=== PATIENT | male | born 1950 | race Caucasian/White ===

== ENCOUNTER 2020-03-04 15:14 | Emergency (ER) | payer OTHER, MEDICARE ==
[2020-03-04] MEDS ORDERED: Sodium Chloride 0.9% 10 ML Syringe FLUSH PRN ×2 (15:34→16:22)
[2020-03-04] MEDS ORDERED: Sodium Chloride 0.9% 2.5 ML Syringe FLUSH PRN ×2 (15:34→16:22)
[2020-03-04] MEDS ORDERED: Ketamine 500 mg/10 ML MDV ONE (16:01)
[2020-03-04] MEDS ORDERED: propofoL 100 ML IV SCH (16:16)
[2020-03-04] MEDS ORDERED: propofoL 100 ML ONE (16:18)
[2020-03-04] MEDS ORDERED: Rocuronium Bromide 50 MG/5 ML Syringe IVPUSH ONE (16:19)
[2020-03-04] MEDS ORDERED: Ketamine 500 mg/10 ML MDV IV ONE (16:19)
[2020-03-04] MEDS ORDERED: Cefepime 2 GM in Premix Bag 1 BAG IV ONE (16:27)
[2020-03-04] MEDS ORDERED: Dexamethasone 10 MG/ML SDV IVPUSH ONE (16:27)
[2020-03-04] MEDS ORDERED: Vancomycin/Water for INJ (PEG) 2 GM in Premix Bag 1 BAG IV ONE (16:28)
--- NOTE | 2020-03-04 16:34 | CR ---
Indication: Post intubation. Technique: AP portable view of the chest. Comparison: None Findings: An ET tube is identified with the tip 2 cm superior to level of jacek. NG tube is identified with the tip overlying the body of the stomach. The heart is borderline in size. Patchy infiltrates are identified throughout the left lung. Mild opacities are identified in the right lower lobe. Small bilateral pleural effusions are identified. No pneumothorax is seen. Impression: Intubation. Patchy opacities identified throughout both lungs, much greater on the left than the right. Dictated by Dorothy Maria MD @ Mar 04 2020 4:32PM Signed by Dr. Dorothy Maria @ Mar 04 2020 4:33PM
[2020-03-04 16:38] LABS: BLOOD UREA NITROGEN,BUN 29 mg/dL (7.0-18.0); CHLORIDE,CL 96 mmol/L (98-107); GLUCOSE RANDOM 120 mg/dL (74-106); POTASSIUM,K 4.5 mmol/L (3.5-5.1); SODIUM,NA 130 mmol/L (136-148)
--- NOTE | 2020-03-04 17:04 | EDM.PDOC ---
ED HPI GENERAL MEDICAL PROBLEM - General Chief Complaint: Respiratory Problem Stated Complaint: BREATHING DIFFICULTY Time Seen by Provider: 03/04/20 15:33 Source of Information: Reports: Patient History Limitations: Reports: Respiratory Distress - History of Present Illness INITIAL COMMENTS - FREE TEXT/NARRATIVE: 69/M w/PMH of HTN presenting with shortness of breath. Reportedly diagnosed with COVID-19 on 02/14/2020. Gets care through the [place] [facility] and has had multiple subsequent positive COVID tests. Worsening shortness of breath over the past few days, and much worse today so came to the ED. Here he complains of dyspnea but no chest pain or pain anywhere else. Remainder of HPI limited due to severe shortness of breath and critical condition. Past medical history: Reviewed, no additional pertinent history. Surgical history: Reviewed in system, no additional pertinent history. Social history: Reviewed in system, no additional pertinent history. Family history: Reviewed in system, no additional pertinent history. PHYSICAL EXAM Vital signs reviewed. Nursing notes reviewed. Constitutional: Awake, alert, appears distressed. Head: Normocephalic, atraumatic. Eyes: EOMI, conjunctiva normal, no discharge, no scleral icterus. Ears, Nose, Throat: External ears and nose normal, moist oral mucosa. Cardiovascular: Tachycardic, 2+ radial pulse, capillary refill less than 2 seconds. Pulmonary: very labored breathing, tachypneic, 2-3 word sentences, diminished bases. Abdomen/GI: Soft, nontender, nondistended, no guarding or rigidity, no masses. Musculoskeletal: No deformities. Integumentary: Appropriate color for ethnicity, warm, dry, no pallor or jaundice, no rash. Neurologic: Alert, answering questions appropriately, normal speech, moving all extremities well. Psychiatric: Appropriate mood and affect, normal thought process. - Related Data Allergies Allergy/AdvReac Type Severity Reaction Status Date / Time No Known Allergies Allergy Verified 03/04/20 15:54 Home Meds: Home Meds lisinopriL [Lisinopril] 20 mg PO DAILY 03/04/20 [History] ED ROS GENERAL - Review of Systems Review Of Systems: See Below ED EXAM, GENERAL - Physical Exam Exam: See Below ED RESPIRATORY PROCEDURES - Endotracheal Intubation Time of Intubation: 16:14 ET Intubation Indication: Respiratory Failure Preparation: Suction, Balloon Tested, BVM Set Up, Difficult Airway Equip Pre-Oxygenation: 100% FiO2 Anesthesia Meds: Ketamine, Rocuronium Placement: Orotracheal Cords Visualized: Yes ETT Size In mm: 7.5 Number of Attempts: 1 Confirmed By: CO2 Indicator, Bilateral Breath Sounds, Chest Xray Tube Secured By: By RT EKG INTERPRETATION EKG Interpretation Comments: 12-Lead ECG Interpretation Acquired: 3:59 PM Rhythm: Sinus tachycardia Rate: 105 bpm Palmer: Normal Intervals: Normal Ectopy: None RV Strain: No obvious RV strain pattern. ST Segments/T-Waves: T wave inversions lead III Acute Ischemic Changes: None apparent Interpretation: No STEMI Course - Vital Signs Text/Narrative:: Severe respiratory distress on arrival, severe hypoxia to 55% in triage. Placed on NRB at 15LPM, best SPO2 reading 87%. Very labored breathing with resting tachypnea. Decision to intubate discussed with patient and he is agreeable. IV access, labs sent. 12-lead ECG reviewed. Intubated via RSI. OG placed, additional IV access. Blood cultures x2 and labs. CXR shows marked bilateral infiltrates L>R, ETT in good position. Post-intubation sedation with propofol and ketamine. Sosa placed. Broad spectrum antibiotics and dexamethasone for COVID with hypoxia. Labs show hyponatremia, elevated CRP and LFTs. ICU admission. Had difficulty securing a bed as many facilities are full. Kaila molina got ED physician acceptance in [facility] ([place], [place]) pending ICU bed availability. ED physician wanted to defer remdesivir until accepting pocket stitcher could evaluate the patient. Air medical crew arrived to transport patient. After crew left, [facility] transfer center personnel called back to request the patient go their hospital in [place], [place] instead as they have two free ICU beds there and he would not need to board in the ED in [place], [place]. I feel this is reasonable as he will have more expeditious inpatient critical care. Contacted air medical crew and they are able to divert without issue. I spoke with accepting physician Dr. Sheikh in [place] to give report and she accepted the patient - advised on elevated D-dimer and she can decide about anticoagulation upon arrival. Last Recorded V/S: Last Vital Signs Temp 37.0 C 03/04/20 17:55 Pulse 121 H 03/04/20 17:55 Resp 19 03/04/20 17:55 BP 172/104 H 03/04/20 17:55 Pulse Ox 92 L 03/04/20 17:55 - Orders/Labs/Meds Orders: Active Orders 24 hr Category Date Time Status Insert Urinary Catheter [OM.PC] Q24H Care 03/04/20 16:30 Ordered APTT [REF] Stat Lab 03/04/20 15:50 Received CULTURE BLOOD [BC] Stat Lab 03/04/20 15:50 Received CULTURE BLOOD [BC] Stat Lab 03/04/20 16:42 Received Blood Culture x2 Reflex Set [OM.PC] Stat Ot 03/04/20 16:22 Ordered Desired Level of Sedation (RASS) [AST] Click to Edit [facility] 03/04/20 16:25 Ordered ED Rapid Sequence Intubation Reflex [OM.PC] PER UNIT [facility] 03/04/20 16:30 Ordered ROUTINE Pulse Oximetry Continuous Monitoring [OM.PC] Routine Ot 03/04/20 16:22 Ordered Saline Lock Insert [OM.PC] Stat [facility] 03/04/20 15:34 Ordered Saline Lock Insert [OM.PC] Stat Ot 03/04/20 16:22 Ordered Severe Sepsis Onset Time [OM.PC] Stat Ot 03/04/20 16:22 Ordered Labs: Laboratory Tests 03/04/20 03/04/20 03/04/20 Range/Units 15:50 15:50 15:50 WBC 10.38 (4.0-11.0) K/uL RBC 5.25 (4.50-5.90) M/uL Hgb 15.4 (13.0-17.0) g/dL Hct 44.8 (38.0-50.0) % MCV 85.3 (80.0-98.0) fL MCH 29.3 (27.0-32.0) pg MCHC 34.4 (31.0-37.0) g/dL RDW Std Deviation 43.6 (28.0-62.0) fl RDW Coeff of Tamera 14 (11.0-15.0) % Plt Count 298 (150-400) K/uL MPV 9.70 (7.40-12.00) fL Neut % (Auto) 85.3 H (48.0-80.0) % Lymph % (Auto) 8.7 L (16.0-40.0) % [place] % (Auto) 5.9 (0.0-15.0) % Eos % (Auto) 0.0 (0.0-7.0) % Baso % (Auto) 0.1 (0.0-1.5) % Neut # (Auto) 8.9 H (1.4-5.7) K/uL Lymph # (Auto) 0.9 (0.6-2.4) K/uL [place] # (Auto) 0.6 (0.0-0.8) K/uL Eos # (Auto) 0.0 (0.0-0.7) K/uL Baso # (Auto) 0.0 (0.0-0.1) K/uL Nucleated RBC % 0.0 /100WBC Nucleated RBCs # 0 K/uL INR 1.38 D-Dimer, Quantitative (0.0-0.50) mg/L FEU VBG pH (7.31-7.41) VBG pCO2 (35-45) mmHG VBG pO2 (30-40) mmHG VBG HCO3 (22-30) mEq/L VBG Total CO2 (41-51) mmol/L VBG Base Excess (-3.0-3.0) Lactate (0.20-2.00) mmol/L Sodium 130 L (136-148) mmol/L Potassium 4.5 (3.5-5.1) mmol/L Chloride 96 L (98-107) mmol/L Carbon Dioxide 20.0 L (21.0-32.0) mmol/L BUN 29 H (7.0-18.0) mg/dL Creatinine 1.3 (0.8-1.3) mg/dL Est Cr Clr Drug Dosing 53.81 mL/min Estimated GFR (MDRD) 54.4 ml/min Glucose 120 H (74-106) mg/dL Calcium 8.7 (8.5-10.1) mg/dL Total Bilirubin 1.0 (0.2-1.0) mg/dL AST 72 H (15-37) IU/L ALT 101 H (14-63) IU/L Alkaline Phosphatase 45 L (46-116) U/L Troponin I < 0.050 (0.000-0.056) ng/mL C-Reactive Protein (0.00-0.90) mg/dL B-Natriuretic Peptide (<100) PG/ML Total Protein 7.0 (6.4-8.2) g/dL Albumin 2.6 L (3.4-5.0) g/dL Globulin 4.4 H (2.6-4.0) g/dL Albumin/Globulin Ratio 0.6 L (0.9-1.6) Urine Color Urine Appearance Urine pH (5.0-8.0) Ur Specific [place] (1.001-1.035) Urine Protein (NEGATIVE) mg/dL Urine Glucose (UA) (NEGATIVE) mg/dL Urine Ketones (NEGATIVE) mg/dL Urine Occult Blood (NEGATIVE) Urine Nitrite (NEGATIVE) Urine Bilirubin (NEGATIVE) Urine Urobilinogen (<2.0) EU/dL Ur Leukocyte Esterase (NEGATIVE) Urine RBC (0-2/HPF) Urine WBC (0-5/HPF) Ur Epithelial Cells (NONE-FEW) Urine Bacteria (NEGATIVE) Urine Mucus (NONE-MOD) 03/04/20 03/04/20 03/04/20 Range/Units 15:50 15:50 15:50 WBC (4.0-11.0) K/uL RBC (4.50-5.90) M/uL Hgb (13.0-17.0) g/dL Hct (38.0-50.0) % MCV (80.0-98.0) fL MCH (27.0-32.0) pg MCHC (31.0-37.0) g/dL RDW Std Deviation (28.0-62.0) fl RDW Coeff of Tamera (11.0-15.0) % Plt Count (150-400) K/uL MPV (7.40-12.00) fL Neut % (Auto) (48.0-80.0) % Lymph % (Auto) (16.0-40.0) % [place] % (Auto) (0.0-15.0) % Eos % (Auto) (0.0-7.0) % Baso % (Auto) (0.0-1.5) % Neut # (Auto) (1.4-5.7) K/uL Lymph # (Auto) (0.6-2.4) K/uL [place] # (Auto) (0.0-0.8) K/uL Eos # (Auto) (0.0-0.7) K/uL Baso # (Auto) (0.0-0.1) K/uL Nucleated RBC % /100WBC Nucleated RBCs # K/uL INR D-Dimer, Quantitative 9.89 H (0.0-0.50) mg/L FEU VBG pH (7.31-7.41) VBG pCO2 (35-45) mmHG VBG pO2 (30-40) mmHG VBG HCO3 (22-30) mEq/L VBG Total CO2 (41-51) mmol/L VBG Base Excess (-3.0-3.0) Lactate (0.20-2.00) mmol/L Sodium (136-148) mmol/L Potassium (3.5-5.1) mmol/L Chloride (98-107) mmol/L Carbon Dioxide (21.0-32.0) mmol/L BUN (7.0-18.0) mg/dL Creatinine (0.8-1.3) mg/dL Est Cr Clr Drug Dosing mL/min Estimated GFR (MDRD) ml/min Glucose (74-106) mg/dL Calcium (8.5-10.1) mg/dL Total Bilirubin (0.2-1.0) mg/dL AST (15-37) IU/L ALT (14-63) IU/L Alkaline Phosphatase (46-116) U/L Troponin I (0.000-0.056) ng/mL C-Reactive Protein 19.20 H (0.00-0.90) mg/dL B-Natriuretic Peptide 11 (<100) PG/ML Total Protein (6.4-8.2) g/dL Albumin (3.4-5.0) g/dL Globulin (2.6-4.0) g/dL Albumin/Globulin Ratio (0.9-1.6) Urine Color Urine Appearance Urine pH (5.0-8.0) Ur Specific [place] (1.001-1.035) Urine Protein (NEGATIVE) mg/dL Urine Glucose (UA) (NEGATIVE) mg/dL Urine Ketones (NEGATIVE) mg/dL Urine Occult Blood (NEGATIVE) Urine Nitrite (NEGATIVE) Urine Bilirubin (NEGATIVE) Urine Urobilinogen (<2.0) EU/dL Ur Leukocyte Esterase (NEGATIVE) Urine RBC (0-2/HPF) Urine WBC (0-5/HPF) Ur Epithelial Cells (NONE-FEW) Urine Bacteria (NEGATIVE) Urine Mucus (NONE-MOD) 03/04/20 03/04/20 03/04/20 Range/Units 16:39 16:42 16:42 WBC (4.0-11.0) K/uL RBC (4.50-5.90) M/uL Hgb (13.0-17.0) g/dL Hct (38.0-50.0) % MCV (80.0-98.0) fL MCH (27.0-32.0) pg MCHC (31.0-37.0) g/dL RDW Std Deviation (28.0-62.0) fl RDW Coeff of Tamera (11.0-15.0) % Plt Count (150-400) K/uL MPV (7.40-12.00) fL Neut % (Auto) (48.0-80.0) % Lymph % (Auto) (16.0-40.0) % [place] % (Auto) (0.0-15.0) % Eos % (Auto) (0.0-7.0) % Baso % (Auto) (0.0-1.5) % Neut # (Auto) (1.4-5.7) K/uL Lymph # (Auto) (0.6-2.4) K/uL [place] # (Auto) (0.0-0.8) K/uL Eos # (Auto) (0.0-0.7) K/uL Baso # (Auto) (0.0-0.1) K/uL Nucleated RBC % /100WBC Nucleated RBCs # K/uL INR D-Dimer, Quantitative (0.0-0.50) mg/L FEU VBG pH 7.32 (7.31-7.41) VBG pCO2 43 (35-45) mmHG VBG pO2 102 H (30-40) mmHG VBG HCO3 22 (22-30) mEq/L VBG Total CO2 20 L (41-51) mmol/L VBG Base Excess -4.2 L (-3.0-3.0) Lactate 1.2 (0.20-2.00) mmol/L Sodium (136-148) mmol/L Potassium (3.5-5.1) mmol/L Chloride (98-107) mmol/L Carbon Dioxide (21.0-32.0) mmol/L BUN (7.0-18.0) mg/dL Creatinine (0.8-1.3) mg/dL Est Cr Clr Drug Dosing mL/min Estimated GFR (MDRD) ml/min Glucose (74-106) mg/dL Calcium (8.5-10.1) mg/dL Total Bilirubin (0.2-1.0) mg/dL AST (15-37) IU/L ALT (14-63) IU/L Alkaline Phosphatase (46-116) U/L Troponin I (0.000-0.056) ng/mL C-Reactive Protein (0.00-0.90) mg/dL B-Natriuretic Peptide (<100) PG/ML Total Protein (6.4-8.2) g/dL Albumin (3.4-5.0) g/dL Globulin (2.6-4.0) g/dL Albumin/Globulin Ratio (0.9-1.6) Urine Color YELLOW Urine Appearance SLT CLOUDY Urine pH 6.0 (5.0-8.0) Ur Specific [place] >= 1.030 (1.001-1.035) Urine Protein 30 H (NEGATIVE) mg/dL Urine Glucose (UA) NEGATIVE (NEGATIVE) mg/dL Urine Ketones NEGATIVE (NEGATIVE) mg/dL Urine Occult Blood SMALL H (NEGATIVE) Urine Nitrite NEGATIVE (NEGATIVE) Urine Bilirubin NEGATIVE (NEGATIVE) Urine Urobilinogen 0.2 (<2.0) EU/dL Ur Leukocyte Esterase NEGATIVE (NEGATIVE) Urine RBC 0-2 (0-2/HPF) Urine WBC 0-2 (0-5/HPF) Ur Epithelial Cells RARE (NONE-FEW) Urine Bacteria FEW (NEGATIVE) Urine Mucus LIGHT (NONE-MOD) Meds: Medications Discontinued Medications Generic Name Dose Route Start Last Admin Trade Name Freq PRN Reason Stop Dose Admin Dexamethasone 6 mg 03/04/20 16:27 03/04/20 16:44 Dexamethasone IVPUSH 03/04/20 16:28 6 mg ONETIME ONE Administration Propofol Confirm 03/04/20 16:18 03/04/20 18:47 Diprivan 100 Ml Administered 03/04/20 16:19 Not Given Dose 100 mls @ as directed .ROUTE .STK-MED ONE Propofol 100 mls @ 23.4 mls/hr 03/04/20 16:16 Diprivan 100 Ml IV TITRATE NEHEMIAS Protocol 30 MCG/KG/MIN Cefepime HCl 2 gm/ Premix 50 mls @ 100 mls/hr 03/04/20 16:27 03/04/20 16:46 IV 03/04/20 16:56 100 mls/hr ONETIME ONE Administration Vancomycin HCl 2 gm/ Premix 400 mls @ 200 mls/hr 03/04/20 16:28 IV 03/04/20 18:27 STAT ONE Vancomycin HCl 2 gm/ Sodium 500 mls @ 250 mls/hr 03/04/20 18:00 03/04/20 18:48 Chloride IV 250 mls/hr Q24H NEHEMIAS Administration Ketamine HCl Confirm 03/04/20 16:01 03/04/20 16:56 Ketalar Administered 03/04/20 16:02 Not Given Dose 500 mg .ROUTE .STK-MED ONE Ketamine HCl 150 mg 03/04/20 16:19 03/04/20 16:56 Ketalar IV 03/04/20 16:20 150 mg ONETIME ONE Administration Rocuronium [place] 0 mg 03/04/20 16:19 03/04/20 16:57 Rocuronium [place] IVPUSH 03/04/20 16:20 150 mg ONETIME ONE Administration Sodium Chloride 10 ml 03/04/20 15:34 03/04/20 16:45 Saline Flush FLUSH 10 ml ASDIRECTED PRN Administration Keep Vein Open Sodium Chloride 2.5 ml 03/04/20 15:34 03/04/20 16:45 Saline Flush FLUSH 2.5 ml ASDIRECTED PRN Administration Keep Vein Open Sodium Chloride 10 ml 03/04/20 16:22 03/04/20 16:45 Saline Flush FLUSH 10 ml ASDIRECTED PRN Administration Keep Vein Open Sodium Chloride 2.5 ml 03/04/20 16:22 03/04/20 16:45 Saline Flush FLUSH 2.5 ml ASDIRECTED PRN Administration Keep Vein Open Departure - Departure Time of Disposition: 17:00 Disposition: DC/Tfer to Acute Hospital 02 Condition: Critical Clinical Impression: Acute hypoxemic respiratory failure due to COVID-19 - Discharge Information Referrals: PCP,None [Primary Care Provider] - Forms: ED Department Discharge Critical Care Note - Critical Care Note Total Time (mins): 60 Comments: Critical care time is exclusive of billable procedures and the time to perform these procedures. Critical care time was used to prevent vital system organ failure and deterioration. Critical care time includes bedside management and high-complexity decision making requiring my highest level of mental preparedness and attention. This includes reviewing the patient's chart and prior medical records, ordering and reviewing interpreting laboratory studies and imaging results, interpretation of vital signs and EKG, pulse oximetry, and discussion with the admitting team along with EMS and nursing staff. Acute hypoxic respiratory failure requiring intubation. Sedation and ventilator management. ECG interpretation, lab interpretation. Numerous phone calls to multiple hospitals trying to get acceptance. Phone discussion with spouse and air medical crew. Air transport to ICU. Sepsis Event Note (ED) - Evaluation Sepsis Screening Result: Possible Sepsis Risk - Focused Exam Vital Signs: Vital Signs Temp Pulse Resp BP Pulse Ox 03/04/20 17:55 37.0 C 121 H 19 172/104 H 92 L 03/04/20 17:49 119 H 21 H 171/106 H 9 L 03/04/20 17:35 119 H 20 166/102 H 92 L 03/04/20 17:20 106 H 10 L 130/90 93 L 03/04/20 17:04 115 H 10 L 118/78 94 L 03/04/20 16:50 120 H 12 142/93 H 95 03/04/20 16:34 122 H 141/97 H 95 03/04/20 16:20 120 H 12 137/97 H 93 L 03/04/20 16:13 14 105/76 83 L 03/04/20 15:54 37.2 C 107 H 27 H 137/70 55 L - My Orders Last 24 Hours: My Active Orders 03/04/20 15:34 Saline Lock Insert [OM.PC] Stat 03/04/20 15:50 APTT [REF] Stat CULTURE BLOOD [BC] Stat 03/04/20 16:22 Blood Culture x2 Reflex Set [OM.PC] Stat Pulse Oximetry Continuous Monitoring [OM.PC] Routine Saline Lock Insert [OM.PC] Stat Severe Sepsis Onset Time [OM.PC] Stat 03/04/20 16:25 Desired Level of Sedation (RASS) [AST] Click to Edit 03/04/20 16:30 Insert Urinary Catheter [OM.PC] Q24H ED Rapid Sequence Intubation Reflex [OM.PC] PER UNIT ROUTINE 03/04/20 16:42 CULTURE BLOOD [BC] Stat - Assessment/Plan Last 24 Hours: My Active Orders 03/04/20 15:34 Saline Lock Insert [OM.PC] Stat 03/04/20 15:50 APTT [REF] Stat CULTURE BLOOD [BC] Stat 03/04/20 16:22 Blood Culture x2 Reflex Set [OM.PC] Stat Pulse Oximetry Continuous Monitoring [OM.PC] Routine Saline Lock Insert [OM.PC] Stat Severe Sepsis Onset Time [OM.PC] Stat 03/04/20 16:25 Desired Level of Sedation (RASS) [AST] Click to Edit 03/04/20 16:30 Insert Urinary Catheter [OM.PC] Q24H ED Rapid Sequence Intubation Reflex [OM.PC] PER UNIT ROUTINE 03/04/20 16:42 CULTURE BLOOD [BC] Stat
[2020-03-04] MEDS ORDERED: Vancomycin 2 GM in Sodium Chloride 0.9% 500 ML IV SCH (18:00)
== END 2020-03-04 17:52 ==
LOC: MW.ED 15:14
DX: U07.1 COVID-19 (principal); J96.01 Acute respiratory failure with hypoxia; Z79.899 Other long term (current) drug therapy
CPT/HCPCS: 31500; 43752; 51702; 71045; 80053; 81001; 82803; 83605; 83880; 84484; 85025; 85379; 85610; 86140; 87040; 93005; 94002; 96365; 96375; 99291; 99292; J0692; J1100; J3370; J7040